=== PATIENT | female | born 1965 | race Caucasian/White ===

== ENCOUNTER 2019-12-22 12:09 | Emergency (ER) | payer BC ==
[~2019-12-22] VITALS: Ht 154.9 cm; Wt 90.0 kg
[2019-12-22 12:25] VITALS: BP 189/88
--- NOTE | 2019-12-22 13:37 | RAD ---
Examination: FOOT BILAT 3V History: Reason: fall off 1 step. bilateral foot pain / Spl. Instructions: / History: Comparison/Correlation: None Findings: Three-view exam of the right foot and three-view exam left foot was performed. Bilateral moderate size calcaneal spur is present. No significant degenerative change. No definite acute fracture or bone destruction. Soft tissues are grossly unremarkable. Impression: No acute processes. Electronically signed by: Nestor Miller MD (12/22/2019 1:34 PM) [id number]
[2019-12-22] MEDS ORDERED: NAPR-514 PO (13:52)
--- NOTE | 2019-12-22 13:52 | PHYS DOC ---
Past Medical History Past Medical History: Cancer, Other Additional Past Medical Histor: BP occassionally high, no dx; Cervical ca Past Surgical History: Lumbar Laminectomy, Other Smoking Status: Never Smoker Alcohol Use: None Drug Use: None General Adult EDM: Chief Complaint: FOOT INJURY PAIN HPI: HPI: Patient is a 54-year-old female who was walking down steps and when she got to the bottom she twisted her right foot and then hit her left foot on the ground. She states the left foot hurts worse than the right but she has some swelling on the top of her right foot. She states she is been able to walk but is been painful. She has not noticed any bruising or serious swelling to either foot. She denies any other injuries. She states the pain is throbbing in nature and again worse on the left [] Review of Systems: Review of Systems: Constitutional: Denies fever or chills. [] Eyes: Denies change in visual acuity. [] HENT: Denies nasal congestion or sore throat. [] Respiratory: Denies cough or shortness of breath. [] Cardiovascular: Denies chest pain or edema. [] GI: Denies abdominal pain, nausea, vomiting, bloody stools or diarrhea. [] : Denies dysuria. [] Musculoskeletal: Per HPI [] Integument: Denies rash. [] Neurologic: Denies headache, focal weakness or sensory changes. [] Endocrine: Denies polyuria or polydipsia. [] Lymphatic: Denies swollen glands. [] Psychiatric: Denies depression or anxiety. [] Heart Score: Risk Factors: Risk Factors: DM, Current or recent (<one month) smoker, HTN, HLP, family history of CAD, obesity. Risk Scores: Score 0 - 3: 2.5% MACE over next 6 weeks - Discharge Home Score 4 - 6: 20.3% MACE over next 6 weeks - Admit for Clinical Observation Score 7 - 10: 72.7% MACE over next 6 weeks - Early Invasive Strategies Physical Exam: PE: Constitutional: Well developed, well nourished, mild distress, non-toxic appearance. [] HENT: Normocephalic, atraumatic, bilateral external ears normal, oropharynx moist, no oral exudates, nose normal. [] Eyes: PERRLA, EOMI, conjunctiva normal, no discharge. [] Neck: Normal range of motion, no tenderness, supple, no stridor. [] Cardiovascular:Heart rate regular rhythm, no murmur [] Lungs & Thorax: Bilateral breath sounds clear to auscultation [] Abdomen: Bowel sounds normal, soft, no tenderness, no masses, no pulsatile masses. [] Skin: Warm, dry, no erythema, no rash. [] Back: No tenderness, no CVA tenderness. [] Extremities: Right foot is tender to palp on the dorsal surface little more towards the lateral aspect but no significant swelling or ecchymosis the right foot over the third and fourth toes down to the dorsal aspect of the foot is tender to palp with a very superficial abrasion but no swelling or ecchymosis no obvious deformity of the toes [] Neurologic: Alert and oriented X 3, normal motor function, normal sensory function, no focal deficits noted. [] Psychologic: Affect normal, judgement normal, mood normal. [] Current Patient Data: Vital Signs: Vital Signs Date Time Temp Pulse Resp B/P (MAP) Pulse Ox O2 Delivery O2 Flow Rate FiO2 12/22/19 12:25 98.3 72 16 189/88 (121) 97 Room Air 98.3 EKG: EKG: [] Radiology/Procedures: Radiology/Procedures: []REASON: fall off 1 step. bilateral foot pain PROCEDURE: FOOT BILAT 3V Examination: FOOT BILAT 3V History: Reason: fall off 1 step. bilateral foot pain / Spl. Instructions: / History: Comparison/Correlation: None Findings: Three-view exam of the right foot and three-view exam left foot was performed. Bilateral moderate size calcaneal spur is present. No significant degenerative change. No definite acute fracture or bone destruction. Soft tissues are grossly unremarkable. Impression: No acute processes. Course & Med Decision Making: Course & Med Decision Making Pertinent Labs and Imaging studies reviewed. (See chart for details) [] Dragon Disclaimer: Dragon Disclaimer: This electronic medical record was generated, in whole or in part, using a voice recognition dictation system. Departure Departure Impression: Primary Impression: Right foot sprain Qualified Codes: S93.601A - Unspecified sprain of right foot, initial encounter Additional Impression: Contusion of left foot Qualified Codes: S90.32XA - Contusion of left foot, initial encounter Disposition: 01 HOME, SELF-CARE Condition: STABLE Referrals: NIKI LUI MD (PCP) Patient Instructions: Foot Contusion, Foot Sprain Additional Instructions: Return to the emergency department with any new or concerning symptoms Scripts Naproxen (NAPROXEN) 500 Mg Tablet 1 TAB PO BID PRN for PAIN, #30 TAB 1 Refill Prov: BHAVANI SALINAS DO 12/22/19 Justicifation of Admission Dx: Justifications for Admission: Justification of Admission Dx: No BHAVANI SALINAS DO Dec 22, 2019 13:52
== END 2019-12-22 14:07 | disposition home or self-care (01) ==
LOC: ER 12:09
DX: S93.691A Other sprain of right foot, initial encounter (principal); S90.32XA Contusion of left foot, initial encounter; R60.0 Localized edema; Z85.9 Personal history of malignant neoplasm, unspecified; Z90.89 Acquired absence of other organs; Z98.890 Other specified postprocedural states; W22.8XXA Striking against or struck by other objects, initial encounter; Y93.89 Activity, other specified; Y92.89 Other specified places as the place of occurrence of the external cause; Y99.8 Other external cause status
CPT/HCPCS: 73630; 99284